=== PATIENT | female | born 1985 | race Caucasian/White ===

== ENCOUNTER 2016-10-25 17:54 | Emergency (ER) | payer OTHER ==
[2016-10-25 18:04] VITALS: RESP 16; TEMP 97.9
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
[2016-10-25] MEDS ORDERED: NS 1,000 ML IV ONE (19:24)
[2016-10-25] MEDS ORDERED: KETOROLAC 30 MG/1 ML SDV IVP ONE (19:25)
[2016-10-25] MEDS ORDERED: DEXAMETHASONE 10 MG/ML VIAL IVP ONE (19:25)
[2016-10-25 19:57] LABS: % IMMATURE GRANULYOCYTES 0.3 % (0.0-1.1); ABSOLUTE IMMATURE GRANULOCYTES 0.03 10^3/uL (0.00-0.10); ADD DIFF? NO; ADD MORPH? NO; ADD SCAN? NO; ATYPICAL LYMPHOCYTE FLAG 20 (0-99); FRAGMENT RBC FLAG 0 (0-99); HEMATOCRIT 38.9 % (38.0-47.0); HEMOGLOBIN 13.2 g/dL (12.6-16.3); LEFT SHIFT FLG 0 (0-99); LIPEMIA HEMOLYSIS FLAG 90 (0-99); MEAN CELL HEMOGLOBIN 30.6 pg (27.9-34.1); MEAN CELL HEMOGLOBIN CONCENTR. 33.9 g/dL (32.4-36.7); MEAN CELL VOLUME 90.3 fL (81.5-99.8); MEAN PLATELET VOLUME 9.4 fL (8.7-11.7); PLATELET CLUMPS FLAG 0 (0-99); PLATELET COUNT 289 10^3/uL (150-400); RED BLOOD CELL COUNT 4.31 10^6/uL (4.18-5.33); RED CELL DISTRIBUTION WIDTH 12.4 % (11.5-15.2)
[2016-10-25 20:01] LABS: ANION GAP 12 mEq/L (8-16); CALCIUM 9.8 mg/dL (8.5-10.4); CARBON DIOXIDE 25 mEq/l (22-31); CHLORIDE 103 mEq/L (97-110); CREATININE 0.8 mg/dL (0.6-1.0); ETHANOL SERUM < 10 mg/dL (0-10); GLOMERULAR FILTRATION RATE > 60; GLUCOSE 67 mg/dL (70-100); POTASSIUM 4.3 mEq/L (3.5-5.2); SODIUM 140 mEq/L (134-144)
[2016-10-25 22:18] VITALS: BP 125/70; PULSE 73; O2SAT 95
== END 2016-10-25 21:45 | disposition home or self-care (01) ==
DX: S09.90XA Unspecified injury of head, initial encounter (principal); F07.81 Postconcussional syndrome; F17.200 Nicotine dependence, unspecified, uncomplicated; W22.8XXA Striking against or struck by other objects, initial encounter
CPT/HCPCS: 96374; G0480; J1885